=== PATIENT | female | born 1975 | race Hispanic/Latino ===

== ENCOUNTER 2016-07-25 19:22 | Emergency (ER) | payer OTHER ==
[2016-07-25 19:22] VITALS: BMI 26.6
[2016-07-25 19:43] VITALS: BP 135/72; PULSE 72; RESP 16; TEMP 98.3; O2SAT 98
--- NOTE | 2016-07-25 20:29 | ED PDOC ---
HPI: Back Time Seen by Provider: 07/25/16 19:48 Chief Complaint (Nursing): Back Pain Chief Complaint (Provider): Back Pain History Per: Patient History/Exam Limitations: no limitations Onset/Duration Of Symptoms: Days (x2 weeks) Current Symptoms Are (Timing): Still Present Additional Complaint(s): 41 year old female presents to the emergency department with a complaint of back pain x 2 weeks. Patient states that pain radiates from right side of low back down right leg. She has taken OTC tylenol and applied tiger balm without relief of symptoms. No recent fall or trauma, no associated dysuria or incontinence. Patient rates current pain as 7 out of 10. Patient states that she has had intermittent back pain and sciatica symptoms since receiving an epidural during 5 years ago. PMD: Dr Juvencio Miller MD Past Medical History Reviewed: Historical Data, Nursing Documentation, Vital Signs Vital Signs: Last Vital Signs Temp 98.3 F 07/25/16 19:41 Pulse 72 07/25/16 19:41 Resp 16 07/25/16 19:41 BP 135/72 07/25/16 19:41 Pulse Ox 98 07/25/16 19:41 - Medical History PMH: Anemia, Asthma, Migraine - Surgical History Surgical History: Cholecystectomy, Tonsillectomy (And adenoidectomy), (x2) Other surgeries: right knee surgery, sinus surgery - Family History Family History: States: No Known Family Hx - Living Arrangements Living Arrangements: With Family - Social History Current smoker - smoking cessation education provided: No Alcohol: None Drugs: Denies - Home Medications Home Medications: Ambulatory Orders Medication Instructions Recorded Acetaminophen/Butalbital/Caf 1 - 2 tab PO Q6 PRN #16 tab 05/06/15 [Fioricet] Cetirizine HCl [Zyrtec Allergy] mg PO DAILY 06/02/15 Naproxen 375 mg PO Q8 PRN #21 tab 06/02/15 diaZEpam [Valium] 5 mg PO Q6 PRN #10 tab 06/02/15 Amoxicillin 500 mg PO BID #14 cap 09/10/15 Acetaminophen/Butalbital/Caf 1 - 2 tab PO Q6 PRN #20 tab 10/05/15 [Fioricet] Amoxicillin 500 mg PO BID #14 tab 11/15/15 Acetaminophen/Butalbital/Caf 1 - 2 tab PO Q6 PRN #20 tab 03/06/16 [Fioricet] Ondansetron ODT [Zofran ODT] 4 mg PO Q6 PRN #16 odt 03/06/16 Cyclobenzaprine [Cyclobenzaprine 10 mg PO TID PRN #20 tab 07/25/16 HCl] Lidocaine 5% [Lidoderm] 1 ea TD DAILY PRN #30 patch 07/25/16 predniSONE [Prednisone] 20 mg PO BID #10 tab 07/25/16 - Allergies Allergies/Adverse Reactions: Allergies Allergy/AdvReac Type Severity Reaction Status Date / Time morphine Allergy VOMITING Verified 03/06/16 19:02 aspirin AdvReac Mild stomach Verified 07/25/16 19:46 issues ibuprofen [From Motrin] AdvReac Mild stomach Verified 07/25/16 19:40 issues Review of Systems ROS Statement: Except As Marked, All Systems Reviewed And Found Negative Gastrointestinal: Negative for: Other (changes in bowel movements) Genitourinary Female: Negative for: Dysuria, Frequency Musculoskeletal: Positive for: Back Pain, Leg Pain (Right) Neurological: Negative for: Weakness, Numbness, Incoordination, Change in Speech , Confusion, Seizures, Altered Mental Status, Headache, Dizziness Physical Exam - Reviewed Nursing Documentation Reviewed: Yes Vital Signs Reviewed: Yes - Physical Exam Appears: Positive for: Well, Non-toxic, No Acute Distress, Uncomfortable Head Exam: Positive for: ATRAUMATIC, NORMAL INSPECTION, NORMOCEPHALIC Skin: Positive for: Normal Color. Negative for: Rash Eye Exam: Positive for: Normal appearance Neck: Positive for: Painless ROM. Negative for: Pain On Movement Of Neck Back: Positive for: Other (Diffuse tenderness of the lower lumbar region. Pain elicited to the heel of the right leg with walking.). Negative for: L CVA Tenderness, R CVA Tenderness Extremity: Negative for: Pedal Edema, Calf Tenderness Neurologic/Psych: Positive for: Alert, Oriented - Laboratory Results Urine POC: Negative Urine dip results: Positive for: Blood (Urine dip positive for moderate blood. ( Patient is currently menstruating)) - ECG O2 Sat by Pulse Oximetry: 98 (RA) Pulse Ox Interpretation: Normal - Other Rad L/S Spine x-ray X-Ray: Interpreted by Me, Viewed By Me X-Ray Interpretation: no fx, no dis Medical Decision Making Medical Decision Making: Time: 19:41 Initial Impression: Back pain Initial Plan: --Urine Dip --Flexeril 10 mg PO --Toradol 30 mg IM --LS Spine AP/Lat (RAD) --Reevaluation Patient feels better after medications are administered. She is aware of x-ray results. Patient given prescriptions for Lidoderm patch, prednisone and Flexeril. She was advised to follow up with primary doctor or orthopedist in 2- 3 days for further evaluation. Scribe Attestation: Documented by Keli Matthew, acting as a scribe for Sol Blanco PA-C. Provider Scribe Attestation: All medical record entries made by the Scribe were at my direction and personally dictated by me. I have reviewed the chart and agree that the record accurately reflects my personal performance of the history, physical exam, medical decision making, and the department course for this patient. I have also personally directed, reviewed, and agree with the discharge instructions and disposition. Disposition - Clinical Impression Clinical Impression: Back pain, Sciatica - Patient ED Disposition Is Patient to be Admitted: No Counseled Patient/Family Regarding: Studies Performed, Diagnosis, Need For Followup, Rx Given - Disposition Referrals: Juvencio Miller MD [Family Provider] - Davida Granger MD [Staff Provider] - Disposition: Routine/Home Disposition Time: 21:57 Condition: IMPROVED Additional Instructions: Take prescription meds as directed. Follow up with primary doctor or orthopedist in 2-3 days. Prescriptions: Cyclobenzaprine [Cyclobenzaprine HCl] 10 mg PO TID PRN #20 tab PRN Reason: Muscle Spasm Lidocaine 5% [Lidoderm] 1 ea TD DAILY PRN #30 patch PRN Reason: Pain, Moderate (4-7) predniSONE [Prednisone] 20 mg PO BID #10 tab Instructions: Sciatica (ED), Back Pain (ED)
--- NOTE | 2016-07-26 17:34 | RAD ---
PROCEDURE: Radiographs of the Lumbar Spine. HISTORY: Pain. No history of recent/ related trauma provided COMPARISON: No prior. FINDINGS: BONES: Normal alignment. No listhesis. No fracture. DISC SPACES: Unremarkable. OTHER FINDINGS: None. IMPRESSION: No acute findings related to/accounting for the clinical presentation.
== END 2016-07-25 22:45 | disposition home or self-care (01) ==
LOC: H.ER 19:22
DX: M54.30 Sciatica, unspecified side (principal)

== ENCOUNTER 2016-09-03 18:58 | Observation (INO) | payer OTHER ==
[2016-09-03 18:59] VITALS: BMI 26.6
--- NOTE | 2016-09-03 19:30 | ED PDOC ---
HPI: General Adult Time Seen by Provider: 09/03/16 19:15 Chief Complaint (Nursing): Eye Problem Chief Complaint (Provider): Right arm nunmbness, blurry vision History Per: Patient History/Exam Limitations: no limitations Onset/Duration Of Symptoms: Days, Intermittent Episodes, Persistent Additional History Per: Patient Additional Complaint(s): The patient is a 41yo female, past medical history of anemia, presents to the ED for evaluation of right arm numbness and blurry vision for the past week with intermittent episodes. Patient reports an episode of right lower extremity numbness which occurred once last week. Patient reports she presented today because today at work, she had an episode of right arm numbness and blurry vision at the same time, causing her concern. Patient states she is unsure if she feels any weakness; also reports a slight headache (1/10) at present. Patient offers no additional medical complaints. NIHSS Stroke Scale - Date/Time Evaluation Performed Date Performed: 09/03/16 Time Performed: 19:15 When Was NIHSS Performed: Baseline - How Severe is the Stroke Level of Consciousness: 0=Alert LOC to Questions: 0=Both comments correct LOC to commands: 0=Obeys both correctly Best Gaze: 0=Normal Visual: 0=No visual loss Facial: 0=Normal Motor Arm - Left: 0=No drift Motor Arm - Right: 0=No drift Motor Leg - Left: 0=No drift Motor Leg - Right: 0=No drift Limb Ataxia: 0=Absent Sensory: 0=Normal Best Language: 0=No aphasia Dysarthia: 0=Normal articulation Extinction & Inattention (Neglect): 0=Normal, no object Score: 0 Past Medical History Reviewed: Historical Data, Nursing Documentation, Vital Signs Vital Signs: Last Vital Signs Temp 98.9 F 09/03/16 19:03 Pulse 80 09/03/16 19:03 Resp 18 09/03/16 19:03 BP 137/86 09/03/16 19:03 Pulse Ox 100 09/03/16 21:38 - Medical History PMH: Anemia, Asthma, Migraine Denies: Diabetes, Chronic Kidney Disease - Surgical History Surgical History: Cholecystectomy, Tonsillectomy (And adenoidectomy), (x2) - Family History Family History: States: Unknown Family Hx - Immunization History Hx Tetanus Toxoid Vaccination: No Hx Influenza Vaccination: Yes Hx Pneumococcal Vaccination: No - Home Medications Home Medications: Ambulatory Orders Medication Instructions Recorded Acetaminophen [Tylenol 325mg tab] PRN 09/03/16 - Allergies Allergies/Adverse Reactions: Allergies Allergy/AdvReac Type Severity Reaction Status Date / Time morphine Allergy VOMITING Verified 03/06/16 19:02 aspirin AdvReac Mild stomach Verified 07/25/16 19:46 issues ibuprofen [From Motrin] AdvReac Mild stomach Verified 07/25/16 19:40 issues Review of Systems ROS Statement: Except As Marked, All Systems Reviewed And Found Negative Constitutional: Negative for: Weakness Eyes: Positive for: Vision Change (blurry vision) Musculoskeletal: Positive for: Other (right upper extremity numbness) Neurological: Positive for: Headache (mild) Physical Exam - Reviewed Nursing Documentation Reviewed: Yes Vital Signs Reviewed: Yes - Physical Exam Appears: Positive for: Non-toxic, Uncomfortable (anxious appearing, tearful) Head Exam: Positive for: ATRAUMATIC, NORMAL INSPECTION, NORMOCEPHALIC Skin: Positive for: Normal Color, Warm, DRY Eye Exam: Positive for: Normal appearance, EOMI, PERRL Neck: Positive for: Normal, Supple Cardiovascular/Chest: Positive for: Regular Rate, Rhythm Respiratory: Positive for: Normal Breath Sounds. Negative for: Respiratory Distress Extremity: Positive for: Normal ROM. 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 Negative for : Motor/Sensory Deficits, Aphasia, Facial Droop - Laboratory Results Result Diagrams: 09/03/16 19:45 09/03/16 19:45 - ECG O2 Sat by Pulse Oximetry: 100 (RA) Pulse Ox Interpretation: Normal Medical Decision Making Medical Decision Making: Time: 1929 Impression: Paresthesia vs. TIA vs. electrolyte abnormalities Plan: -- Labs -- CT Head -- Chest x-ray Reassess Time: 2128 CT Head IMPRESSION: No acute intracranial abnormality Time: [address] Miller who agrees with admission for TIA workup. Patient not given aspirin due to known allergy. Scribe Attestation: Documented by Liz Lock acting as a scribe for Panda Seo MD. Provider Attestation: All medical record entries made by the Scribe were at my direction and personally dictated by me. I have reviewed the chart and agree that the record accurately reflects my personal performance of the history, physical exam, medical decision making, and the department course for this patient. I have also personally directed, reviewed, and agree with the discharge instructions and disposition. Disposition - Clinical Impression Clinical Impression: TIA (transient ischemic attack) - Disposition Disposition Time: 21:30 Condition: STABLE
[2016-09-03 19:55] LABS: BASO % 0.3 % (0.0-2.0); EOS # 0.3 K/uL (0.0-0.7); EOS % 2.7 % (0.0-4.0); HEMOGLOBIN 9.4 g/dL (12.0-16.0); LYMPH # 3.4 K/uL (1.0-4.3); LYMPH % 33.3 % (20.0-40.0); MEAN CELL VOLUME 77.7 fl (81.0-99.0); MEAN CORPUSCULAR HEMOGLOBIN 24.3 pg (27.0-31.0); MEAN CORPUSCULAR HGB CONC 31.3 g/dL (33.0-37.0); MEAN PLATELET VOLUME 8.2 fl (7.2-11.7); MONO # 0.8 K/uL (0.0-0.8); MONO % 7.6 % (0.0-10.0); NEUT # 5.6 K/uL (1.8-7.0); NEUT % 56.1 % (50.0-75.0); RBC 3.86 Mil/uL (3.80-5.20); RED CELL DISTRIBUTION WIDTH 15.3 % (11.5-14.5); WHITE BLOOD COUNT 10.1 K/uL (4.8-10.8)
[2016-09-03 20:04] LABS: ALB/GLOB RATIO 1.2 (1.0-2.1); ALBUMIN 4.1 g/dL (3.5-5.0); ALT/SGPT 29 U/L (9-52); AST/SGOT 23 U/L (14-36); BLOOD UREA NITROGEN 8 mg/dl (7-17); GFR AFRICAN-AMERICAN > 60; GFR NON-AFRICAN AMERICAN > 60; HDL CHOLESTEROL 49 MG/DL (30-70)
[2016-09-03 20:13] LABS: PARTIAL THROMBOPLASTIN TIME 28.2 Seconds (25.6-37.1); PROTHROMBIN TIME 11.5 Seconds (9.8-13.1)
[2016-09-03 20:15] LABS: LDL CHOLESTEROL 87 mg/dL (0-129)
--- NOTE | 2016-09-03 21:28 | CT ---
EXAM: CT Head Without Intravenous Contrast CLINICAL HISTORY: 41 years old, female; Signs and symptoms; Dizziness and numbness / parasthesia; Right; Additional info: Blurry vision, r arm numbness TECHNIQUE: Axial computed tomography images of the head/brain without intravenous contrast. This CT exam was performed using one or more of the following dose reduction techniques: automated exposure control, adjustment of the mA and/or kV according to patient size, and/or use of iterative reconstruction technique. Coronal and sagittal reformatted images were created and reviewed. EXAM DATE/TIME: 09/03/2016 7:20 PM COMPARISON: There are no prior studies for comparison. FINDINGS: Brain: Ventricles are normal in size and configuration. There is no midline shift. There are no intra-axial or extra-axial mass lesions or areas of hemorrhage. There are no abnormal fluid collections. Ward-white differentiation is maintained. Ventricles: See above. Bones: Cranial vault is intact. Soft tissues: unremarkable Sinuses: There is no acute sinusitis. Ears and mastoids: Middle ears and mastoids are unremarkable Orbits: Orbital contents are unremarkable. IMPRESSION: No acute intracranial abnormality
[2016-09-04] MEDS ORDERED: Pneumococcal 23-Valent Vaccine IM ONE (06:00)
[2016-09-04] MEDS ORDERED: Enoxaparin 40 mg Syringe SC SCH (09:00)
--- NOTE | 2016-09-04 10:07 | CARD ---
APPROVED REPORT EKG Measurement Heart [id number] <Conclusion> Normal sinus rhythm Normal ECG
[2016-09-04] MEDS: Apap-Butalbital-Caffeine 325-50-40mg Tab PO PRN ×2 (10:20→20:17)
[2016-09-04 12:29] VITALS: RESP 20
[2016-09-04] MEDS ORDERED: Apap-Butalbital-Caffeine 325-50-40mg Tab PO STA (14:34)
--- NOTE | 2016-09-04 14:58 | RAD ---
HISTORY: R arm weakness, blurry visoin COMPARISON: 11/15/2015 FINDINGS: LUNGS: No active pulmonary disease. PLEURA: No significant pleural effusion identified, no pneumothorax apparent. CARDIOVASCULAR: Normal. OSSEOUS STRUCTURES: No significant abnormalities. VISUALIZED UPPER ABDOMEN: Normal. OTHER FINDINGS: None. IMPRESSION: No active disease.
--- NOTE | 2016-09-04 16:29 | CP.PCM.DIS ---
Provider - Provider Date of Admission: 09/03/16 21:35 Attending physician: Juvencio Miller MD Time Spent in preparation of Discharge (in minutes): 30 Diagnosis - Discharge Diagnosis (1) Anemia Status: Acute (2) Paresthesia Status: Acute (3) Migraine headache Status: Acute Hospital Course - Lab Results Lab Results: Most Recent Lab Values WBC 10.1 K/uL (4.8-10.8) 09/03/16 19:45 RBC 3.86 Mil/uL (3.80-5.20) 09/03/16 19:45 Hgb 9.4 g/dL (12.0-16.0) L 09/03/16 19:45 Hct 30.0 % (34.0-47.0) L 09/03/16 19:45 MCV 77.7 fl (81.0-99.0) L D 09/03/16 19:45 MCH 24.3 pg (27.0-31.0) L 09/03/16 19:45 MCHC 31.3 g/dL (33.0-37.0) L 09/03/16 19:45 RDW 15.3 % (11.5-14.5) H 09/03/16 19:45 Plt Count 309 K/uL (130-400) 09/03/16 19:45 MPV 8.2 fl (7.2-11.7) 09/03/16 19:45 Neut % (Auto) 56.1 % (50.0-75.0) 09/03/16 19:45 Lymph % (Auto) 33.3 % (20.0-40.0) 09/03/16 19:45 [place] % (Auto) 7.6 % (0.0-10.0) 09/03/16 19:45 Eos % (Auto) 2.7 % (0.0-4.0) 09/03/16 19:45 Baso % (Auto) 0.3 % (0.0-2.0) 09/03/16 19:45 Neut # 5.6 K/uL (1.8-7.0) 09/03/16 19:45 Lymph # 3.4 K/uL (1.0-4.3) 09/03/16 19:45 [place] # 0.8 K/uL (0.0-0.8) 09/03/16 19:45 Eos # 0.3 K/uL (0.0-0.7) 09/03/16 19:45 Baso # 0.0 K/uL (0.0-0.2) 09/03/16 19:45 ESR 37 mm/hr (0-20) H 09/04/16 08:26 PT 11.5 Seconds (9.8-13.1) 09/03/16 19:45 INR 1.0 (0.9-1.2) 09/03/16 19:45 APTT 28.2 Seconds (25.6-37.1) 09/03/16 19:45 Sodium 138 mmol/l (132-148) 09/03/16 19:45 Potassium 3.8 MMOL/L (3.6-5.0) 09/03/16 19:45 Chloride 105 mmol/L (98-107) 09/03/16 19:45 Carbon Dioxide 25 mmol/L (22-30) 09/03/16 19:45 Anion Gap 11 (10-20) 09/03/16 19:45 BUN 8 mg/dl (7-17) 09/03/16 19:45 Creatinine 0.7 mg/dL (0.7-1.2) 09/03/16 19:45 Est GFR ( Amer) > 60 09/03/16 19:45 Est GFR (Non-Af Amer) > 60 09/03/16 19:45 POC Glucose (mg/dL) 92 mg/dL (65-110) 09/03/16 20:14 Random Glucose 93 mg/dL (65-105) 09/03/16 19:45 Calcium 9.0 mg/dL (8.4-10.2) 09/03/16 19:45 Total Bilirubin 0.2 mg/dl (0.2-1.3) 09/03/16 19:45 AST 23 U/L (14-36) 09/03/16 19:45 ALT 29 U/L (9-52) 09/03/16 19:45 Alkaline Phosphatase 91 U/L (38-126) 09/03/16 19:45 Troponin I < 0.0120 ng/mL (0.00-0.120) 09/03/16 19:45 Total Protein 7.5 G/DL (6.3-8.2) 09/03/16 19:45 Albumin 4.1 g/dL (3.5-5.0) 09/03/16 19:45 Globulin 3.5 gm/dL (2.2-3.9) 09/03/16 19:45 Albumin/Globulin Ratio 1.2 (1.0-2.1) 09/03/16 19:45 Triglycerides 98 mg/DL (0-149) 09/03/16 19:45 Cholesterol 167 mg/dL (0-199) 09/03/16 19:45 LDL Cholesterol Direct 87 mg/dL (0-129) 09/03/16 19:45 HDL Cholesterol 49 MG/DL (30-70) 09/03/16 19:45 Vitamin B12 317 pg/mL (239-931) 09/04/16 08:26 Blood Type O POSITIVE 09/03/16 19:45 Antibody Screen Negative 09/03/16 19:45 BBK History Checked Patient has bt 09/03/16 19:45 - Hospital Course Hospital Course: PARESTHESIAS RESOLVED Discharge Exam - Head Exam Head Exam: ATRAUMATIC, NORMAL INSPECTION, NORMOCEPHALIC - Eye Exam Eye Exam: EOMI, Normal appearance, PERRL Pupil Exam: NORMAL ACCOMODATION, PERRL - GI/Abdominal Exam GI & Abdominal Exam: Normal Bowel Sounds - Rectal Exam Rectal Exam: NORMAL INSPECTION - Neurological Exam Neurological exam: Alert, CN II-XII Intact, Normal Gait, Oriented x3, Reflexes Normal - Psychiatric Exam Psychiatric exam: Normal Affect, Normal Mood - Skin Skin Exam: Dry, Intact, Normal Color, Warm Discharge Plan - Follow Up Plan Condition: STABLE Disposition: HOME/ ROUTINE Patient education suggested?: Yes Additional Instructions: NEUROLOGY EVALUATION
--- NOTE | 2016-09-04 16:31 | MRI ---
PROCEDURE: MRI BRAIN WITHOUT CONTRAST HISTORY: stroke/ mass COMPARISON: Prior brain MRI dated 07/07/2008. TECHNIQUE: Multiplanar, multisequence MR images of the brain were obtained without intravenous contrast enhancement. FINDINGS: HEMORRHAGE: None DWI: No evidence of an acute or early subacute infarction. BRAIN PARENCHYMA: There 4-5 tiny subcortical long TR hyperintensities identified at the right frontal lobe with 2 seen at the left frontal lobe as well, best seen on the FLAIR acquisition which are likely not simply change greater prior distant brain MRI dated 07/07/2008. This is a nonspecific pattern with a broad differential diagnosis. Consider possible demyelination, vasculitis or Lyme disease as well as a number other possibilities including hypertrophy retention and migraine headaches. Consider follow-up MRI for further characterization if clinically warranted. The corpus callosum appears normal. VENTRICLES: Unremarkable. No hydrocephalus. CRANIUM: Unremarkable. ORBITS: Grossly unremarkable. PARANASAL SINUSES/MASTOIDS: Clear VASCULAR SYSTEM: Skull base flow voids intact. OTHER FINDINGS: None. IMPRESSION: Several tiny subcortical long TR hyper intense foci are seen at the bilateral frontal lobes once again which are of uncertain origin and significance. No additional white matter abnormalities are appreciate clearly corpus callosum. There is no evidence of an acute or subacute brain infarction or intracranial hemorrhage or mass-effect. Please see different diagnosis above. Consider follow-up brain MRI with contrast for additional characterization.
[2016-09-04 16:50] LABS: PROLACTIN 12.2 ng/mL (3.0-18.9)
--- NOTE | 2016-09-04 17:02 | HP ---
HISTORY OF PRESENT ILLNESS: The patient is a 41-year-old female who was admitted to emergency room because of numbness of right arm with blurry vision intermittently over past one week, worse on the day of admission. She also had headaches on and off. 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 She also has history of chronic sinus problems which she has had surgery for in the past and she also has chronic iron deficiency anemia. She has been poorly compliant to follow up with the neurologist and in the office. FAMILY HISTORY: Non-relevant. SOCIAL HISTORY: She does not smoke or drink and lives at home with and children. REVIEW OF SYSTEMS: Essentially unremarkable for recurrent headaches. PHYSICAL EXAMINATION GENERAL: The patient is alert, oriented, appears to be *------* mild distress from headaches, but numbness of the arm has resolved. VITAL SIGNS: Blood pressure 137/86, pulse of 80, respirations 18. She is afebrile. O2 saturation 100% on room air. SKIN: Fair turgor. HEENT: Pupils equal, reactive to light and accommodation. JVP is flat. Mouth shows fair hygiene. LUNGS: Clear. HEART: Regular. No murmurs or gallops. Chest wall no tenderness. Breaths normal. ABDOMEN: Soft, nontender. No organomegaly. EXTREMITIES: No edema or cyanosis. CENTRAL NERVOUS SYSTEM: Grossly intact. LABORATORY DATA: WBC 10.1, hemoglobin 9.4, platelet count of *------*. Sodium 138, potassium 3.8, BUN 8, creatinine 0.7, serum glucose 93. CAT scan of the head: No acute pathology noted. Chest x-ray done, official report pending. Electrocardiogram: Regular sinus rhythm. IMPRESSION: Possible transient ischemic attack symptoms, however, could be due to migraine headaches, chronic anemia. PLAN: Neurology evaluation. We will obtain MRI of the brain and carotid ultrasound, place the patient on Lovenox. THE PATIENT IS ALLERGIC TO ASPIRIN, so aspirin cannot be given. We will obtain neurology evaluation. If the patient is cleared, we will probably discharge and follow up as an outpatient later. Juvencio Miller MD
[2016-09-04 17:37] LABS: FOLATE 7.5 ng/mL
[2016-09-04 21:08] VITALS: BP 117/77; PULSE 70; TEMP 98.7; O2SAT 99
--- NOTE | 2016-09-05 06:19 | CON ---
DATE: 09/03/2016 REASON FOR CONSULTATION: Transient ischemic attack. CHIEF COMPLAINT: The patient was brought in to [facility] with a history of recurrent episodes of right arm numbness and blurred vision. From a neurological point of view, I was called in to evaluate her for further management. HISTORY OF PRESENT ILLNESS: Ms. Mamta Brown is a 41-year-old right-handed , [place]-speaking female, in her usual state of health. For the last 10 days, she has been experiencing right arm numbness and leg numbness. This comes and goes. When this appears, it at least stays for a few minutes. She also has some right eye blurriness independently; however, while she was at work, these happened together. Usually, a headache is associated with these symptoms; at this time, a different type of headache, not associated with nausea or vomiting. No witnessed tonic-clonic activities. Subjectively, she did not have involuntary movements. No history of recent travel. No history of recent vaccination or medications given to her. PAST MEDICAL HISTORY: Migraine headache. ALLERGIES: MORPHINE. PAST SURGICAL HISTORY: She had gastric bypass surgery more than 7 years ago. REVIEW OF SYSTEMS: As per H and P. PHYSICAL EXAMINATION: VITAL SIGNS: Blood pressure 130/81, mean arterial pressure of 97, respiratory rate is 16, and temperature is afebrile. NECK: Supple. No carotid bruit. CARDIOPULMONARY: Heart sounds are regular. CHEST: Fair air entry. Lungs are clear. EXTREMITIES: No edema. NEUROLOGIC: Mental status examination: She is awake, alert, and oriented to person, place, and time. Speech is clear. Naming, repetition, fluency, and comprehension are all within normal. Cranial nerves: Visual quesada are intact. Pupils reactive to light. Extraocular movement normal. No facial sensory deficits. No facial asymmetry. Hearing is normal. Tongue is midline. Good gag. Motor exam: Able to stand with eyes closed. No drift is noted. Power is symmetric on either side. Deep tendon reflexes are symmetric on either side. Plantar response is downgoing. Sensory examination: Subjectively, numbness over the right side in the leg, does not follow any dermatome. Coordination: [id number] test is intact. Gait is normal. CONCLUSION: Upon review of her history and neurological examination, the patient has episode of right hemisensory deficit associated with blurriness followed by headache. This is probably all related to brain stem migraine versus hemiplegic migraine. However, the current examination does not show any ischemic process. The current examination does not show any long tract signs at present. WORKUP: CT of the head was reviewed by me, no acute pathology noted. MRI of the brain reviewed showed small T2 signal in the frontal region all consistent with possible migraine process. I doubt the patient has ischemic process at this time. Though she carries chronic migraine associated with some sensory deficit, the patient should be on antiplatelet to prevent future form of stroke. LABORATORY DATA: Blood workup: WBC 10.1, hemoglobin 9.4, hematocrit 30.0, and platelets 309. PT 11.5, INR 1.0, and PTT 28.2. Sodium 138, potassium 3.8, chloride 105, bicarbonate 25, BUN 8, creatinine 0.7, GFR is more than 60. Cholesterol 167, LDL 87, HDL 49. B12 is 317. RPR nonreactive. RECOMMENDATIONS: The patient should be on antiplatelet. The patient may benefit from migraine prophylactic medication. This can be given when she can be seen as outpatient. The patient's condition meanwhile was discussed. The patient will be followed as an outpatient. Cristian Shaw MD
--- NOTE | 2016-09-05 11:10 | EEG ---
ELECTROENCEPHALOGRAPHIC REPORT This is a 16-channel electroencephalogram of awake and drowsy adult. During the study, photic stimulation was performed, hyperventilation was not performed. The resting electroencephalogram continues to have 20-30 microvolt, diffuse 5-7 hertz theta activities noted at parietal and occipital leads. Some movement artifact contaminated to the background rhythm. The photic stimulation did not develop any response noted . IMPRESSION: This is an abnormal electroencephalogram because of persistent slowing throughout the record suggestive of bilateral cerebral dysfunction, this is probably secondary to metabolic vascular degenerative process. However, clinically indicated, the patient should be benefited of doing extended hour amplitude electroencephalogram to further localizing abnormal electrophysiological activities. This can be done as an outpatient. Cristian Shaw MD
--- NOTE | 2016-09-05 12:06 | US ---
PROCEDURE: Duplex interrogation of the carotid and vertebral arteries. HISTORY: TIA COMPARISON: No prior TECHNIQUE: Grayscale and duplex Doppler evaluation of the cervical carotid and vertebral arteries were performed. The common carotid, carotid bifurcations and cervical ICA and proximal ECA were evaluated. The vertebral arteries were evaluated for gross patency and directives barton. FINDINGS: Findings: Current study reveals no evidence of significant atherosclerotic plaque changes within the right or left carotid arteries however both internal carotid arteries are somewhat tortuous in course. . Maximal right ICA velocity = 85.2 cm/S Maximal right CCA velocity = 97.5 cm/S ICA/CCA ratio = 1.1 Maximal left ICA velocity = 81.1 cm/S Maximal left CCA velocity = 67.6 cm/S ICA/CCA ratio = 1.3. Antegrade flow noted both vertebral arteries. . Impression: No evidence of a hemodynamically significant stenosis. Tortuous course of both internal carotid arteries.
== END 2016-09-04 21:40 | disposition home or self-care (01) ==
LOC: H.ER 18:58 → H.ERHOLD 21:35 → H.TEL 09-04 00:56
PROVIDERS: ADMIT Internal Medicine Pulmonary Disease; ATTEND Internal Medicine Pulmonary Disease
DX: G43.809 Other migraine, not intractable, without status migrainosus (principal); D50.9 Iron deficiency anemia, unspecified; J45.909 Unspecified asthma, uncomplicated; Z23 Encounter for immunization; Z91.19 Patient's noncompliance with other medical treatment and regimen; Z88.6 Allergy status to analgesic agent; Z98.84 Bariatric surgery status

== ENCOUNTER 2017-12-13 08:38 | Emergency (ER) | payer OTHER ==
[2017-12-13 08:51] VITALS: BMI 28.3
[2017-12-13 08:52] VITALS: TEMP 98.4
[2017-12-13] MEDS ORDERED: Albuterol-Ipratrop 3 mg / 0.5 (3 ml) UD INH STA ×3 (09:17→09:19)
--- NOTE | 2017-12-13 09:44 | ED PDOC ---
HPI: Influenza Time Seen by Provider: 12/13/17 08:58 Chief Complaint: Cough, Cold, Congestion Past Medical History Vital Signs: Last Vital Signs Temp 98.4 F 12/13/17 08:51 Pulse 71 12/13/17 08:51 Resp 20 12/13/17 08:51 BP 121/83 12/13/17 08:51 Pulse Ox 98 12/13/17 08:51 - Medical History PMH: Anemia (JUST FINISHED 10 WEEKS IRON INFUSION), Asthma, Migraine Denies: Diabetes, Chronic Kidney Disease - Surgical History Surgical History: Cholecystectomy, Endoscopy, Tonsillectomy (And adenoidectomy), (x2) - Family History Family History: States: Unknown Family Hx - Immunization History Hx Tetanus Toxoid Vaccination: No Hx Influenza Vaccination: No Hx Pneumococcal Vaccination: No - Home Medications Home Medications: Ambulatory Orders Medication Instructions Recorded Topiramate [Topiramate ER] 1 tab PO DAILY 12/18/16 - Allergies Allergies/Adverse Reactions: Allergies Allergy/AdvReac Type Severity Reaction Status Date / Time morphine Allergy VOMITING Verified 12/13/17 09:10 aspirin AdvReac Mild stomach Verified 12/13/17 09:10 issues ibuprofen [From Motrin] AdvReac Mild stomach Verified 12/13/17 09:10 issues acetaminophen [From Percocet] AdvReac Stomach Verified 12/13/17 09:10 Issues oxycodone [From Percocet] AdvReac Stomach Verified 12/13/17 09:10 Issues - ECG O2 Sat by Pulse Oximetry: 98 Disposition - Disposition
[2017-12-13 09:50] LABS: BASO % 0.3 % (0.0-2.0); EOS # 0.2 K/uL (0.0-0.7); EOS % 3.3 % (0.0-4.0); HEMOGLOBIN 10.9 g/dL (12.0-16.0); LYMPH # 2.4 K/uL (1.0-4.3); LYMPH % 40.2 % (20.0-40.0); MEAN CELL VOLUME 78.9 fl (81.0-99.0); MEAN CORPUSCULAR HEMOGLOBIN 25.6 pg (27.0-31.0); MEAN CORPUSCULAR HGB CONC 32.5 g/dL (33.0-37.0); MEAN PLATELET VOLUME 8.4 fl (7.2-11.7); MONO # 0.4 K/uL (0.0-0.8); MONO % 7.2 % (0.0-10.0); NRBC % 0.1 % (0.0-0.0); RBC 4.23 Mil/uL (3.80-5.20); RED CELL DISTRIBUTION WIDTH 15.2 % (11.5-14.5); WHITE BLOOD COUNT 6.1 K/uL (4.8-10.8)
--- NOTE | 2017-12-13 10:02 | ED PDOC ---
HPI: CCC, URI, Sore Throat Time Seen by Provider: 12/13/17 08:58 Chief Complaint (Nursing): Cough, Cold, Congestion Chief Complaint (Provider): Cough, Cold, Congestion History Per: Patient History/Exam Limitations: no limitations Have you had recent travel within the past 21 days to any of the following countries: [place], [place], [place] or [place]?: No Onset/Duration Of Symptoms: Days (3), Worse Since Current Symptoms Are (Timing): Still Present Associated Symptoms: Fever, Cough, Nasal Congestion Additional Complaint(s): 42 year old female with PMHx of asthma and chronic migraines presents to the ER for an evaluation of cough and congestion onset for 3 days. She reports of chest pain with cough, runny nose and fever. Patient and her kids are sick. Patient has been sick since Saturday and has been using her Albuterol machine. Her fever last night was 101F and she took Tylenol. She called her PMD on Saturday but he is out of town. Denies nausea, vomiting, diarrhea or abdominal pain. PMD: Juvencio Miller I Past Medical History Reviewed: Historical Data, Nursing Documentation, Vital Signs Vital Signs: Last Vital Signs Temp 98.4 F 12/13/17 08:51 Pulse 71 12/13/17 08:51 Resp 20 12/13/17 08:51 BP 121/83 12/13/17 08:51 Pulse Ox 98 12/13/17 08:51 - Medical History PMH: Anemia (JUST FINISHED 10 WEEKS IRON INFUSION), Asthma, Migraine Denies: Diabetes, Chronic Kidney Disease - Surgical History Surgical History: Cholecystectomy, Endoscopy, Tonsillectomy (And adenoidectomy), (x2) Other surgeries: knee surgery, tubal ligation, gastric bypass - Family History Family History: States: Unknown Family Hx - Social History Current smoker - smoking cessation education provided: No Alcohol: None Drugs: Denies - Immunization History Hx Tetanus Toxoid Vaccination: No Hx Influenza Vaccination: No Hx Pneumococcal Vaccination: No - Home Medications Home Medications: Ambulatory Orders Medication Instructions Recorded Topiramate [Topiramate ER] 1 tab PO DAILY 12/18/16 Acetaminophen/Butalbital/Caf 1 tab PO Q8 PRN #10 tab 12/13/17 [Fioricet] Albuterol/Ipratropium [Duoneb 3 3 ml IH QID #50 neb 12/13/17 MG/3 Ml-0.5 MG/3 Ml 3 Ml] predniSONE [predniSONE Tab] 40 mg PO DAILY #10 tab 12/13/17 - Allergies Allergies/Adverse Reactions: Allergies Allergy/AdvReac Type Severity Reaction Status Date / Time morphine Allergy VOMITING Verified 12/13/17 09:10 aspirin AdvReac Mild stomach Verified 12/13/17 09:10 issues ibuprofen [From Motrin] AdvReac Mild stomach Verified 12/13/17 09:10 issues acetaminophen [From Percocet] AdvReac Stomach Verified 12/13/17 09:10 Issues oxycodone [From Percocet] AdvReac Stomach Verified 12/13/17 09:10 Issues Review of Systems ROS Statement: Except As Marked, All Systems Reviewed And Found Negative Constitutional: Positive for: Fever ENT: Positive for: Nose Discharge, Nose Congestion Cardiovascular: Positive for: Chest Pain Respiratory: Positive for: Cough Gastrointestinal: Negative for: Nausea, Vomiting, Abdominal Pain, Diarrhea Physical Exam - Reviewed Nursing Documentation Reviewed: Yes Vital Signs Reviewed: Yes - Physical Exam Appears: Positive for: Non-toxic, No Acute Distress Head Exam: Positive for: ATRAUMATIC, NORMAL INSPECTION, NORMOCEPHALIC Skin: Positive for: Normal Color, Warm, Dry. Negative for: Rash Eye Exam: Positive for: EOMI, Normal appearance, PERRL ENT: Positive for: Normal ENT Inspection, TM Is/Are (normal) Neck: Positive for: Normal, Painless ROM, Supple. Negative for: Decreased ROM Cardiovascular/Chest: Positive for: Regular Rate, Rhythm. Negative for: Murmur Respiratory: Positive for: Wheezing (expiratory wheezing, more prominent on lower lobe). Negative for: Crackles, Rales Gastrointestinal/Abdominal: Positive for: Normal Exam, Soft. Negative for: Tenderness, Guarding, Rebound Back: Positive for: Normal Inspection Extremity: Positive for: Normal ROM. Negative for: Tenderness, Pedal Edema, Deformity Neurologic/Psych: Positive for: Alert, Oriented (x3), Other (speaking full sentences). Negative for: Motor/Sensory Deficits - Laboratory Results Result Diagrams: 12/13/17 09:40 12/13/17 09:40 - ECG O2 Sat by Pulse Oximetry: 98 (RA) Pulse Ox Interpretation: Normal - Radiology X-Ray: Read By Radiologist X-Ray Interpretation: No Acute Disease - Progress Re-evaluation Time: 11:30 Condition: Re-examined, Improving,but remains with symptoms Medical Decision Making Medical Decision Making: Time: 916 Initial Impression: exacerbation asthma Initial Plan: -- BMP --ED Urine --CBC w/ Differential --Chest Two Views --Duoneb 3mg/0.5mg (3ml) --SOLU-medrol 125mg --IV Insertion --Nebulizer Treatment RT --Peak Flow Pre/Post TX --Reevaluation Scribe Attestation: Documented by Monica Connolly, acting as a scribe for Yaz Tay MD Provider Scribe Attestation: All medical record entries made by the Scribe were at my direction and personally dictated by me. I have reviewed the chart and agree that the record accurately reflects my personal performance of the history, physical exam, medical decision making, and the department course for this patient. I have also personally directed, reviewed, and agree with the discharge instructions and disposition. Disposition - Clinical Impression Clinical Impression: Asthma exacerbation - Patient ED Disposition Is Patient to be Admitted: No Doctor Will See Patient In The: Office Counseled Patient/Family Regarding: Diagnosis, Need For Followup, Rx Given - Disposition Referrals: Juvencio Miller MD [Family Provider] - Disposition: Routine/Home Disposition Time: 11:30 Condition: IMPROVED Prescriptions: Acetaminophen/Butalbital/Caf [Fioricet] 1 tab PO Q8 PRN #10 tab PRN Reason: Headache Albuterol/Ipratropium [Duoneb 3 MG/3 Ml-0.5 MG/3 Ml 3 Ml] 3 ml IH QID #50 neb predniSONE [predniSONE Tab] 40 mg PO DAILY #10 tab Instructions: Asthma in Adults Forms: [employer] (Tajik), [facility] ED School/Work Excuse - POA Present On Arrival: None
[2017-12-13 10:09] LABS: BLOOD UREA NITROGEN 8 mg/dl (7-17); CALCIUM 8.9 mg/dL (8.4-10.2); GFR NON-AFRICAN AMERICAN > 60
--- NOTE | 2017-12-13 10:11 | RAD ---
Date of service: 12/13/2017 HISTORY: [id number], asthma, fever, COMPARISON: Portable chest 09/03/2016. TECHNIQUE: Chest PA and lateral FINDINGS: LUNGS: No active pulmonary disease. PLEURA: No significant pleural effusion identified. No pneumothorax apparent. CARDIOVASCULAR: No aortic atherosclerotic calcification present. Normal cardiac size. No pulmonary vascular congestion. OSSEOUS STRUCTURES: No significant abnormalities. VISUALIZED UPPER ABDOMEN: Surgical clips reiterated at the upper abdomen once again. OTHER FINDINGS: None. IMPRESSION: No interval acute cardiopulmonary disease appreciated.
[2017-12-13 12:32] VITALS: BP 107/73; PULSE 74; RESP 14; O2SAT 99
== END 2017-12-13 12:35 | disposition home or self-care (01) ==
LOC: H.ER 08:38
DX: J45.901 Unspecified asthma with (acute) exacerbation (principal); Z79.899 Other long term (current) drug therapy; Z88.5 Allergy status to narcotic agent; Z88.6 Allergy status to analgesic agent
CPT/HCPCS: 71046; 80048; 81025; 85025; 94150; 94640; 96374; 96375; 99284; J1885; J2930

== ENCOUNTER 2018-07-07 21:06 | Emergency (ER) | payer OTHER ==
[2018-07-07 21:06] VITALS: BMI 28.3
[2018-07-07 21:35] VITALS: RESP 16; O2SAT 100
--- NOTE | 2018-07-07 22:54 | ED PDOC ---
Lower Extremity Pain/Injury Time Seen by Provider: 07/07/18 21:51 Chief Complaint (Nursing): Lower Extremity Problem/Injury Chief Complaint (Provider): Left knee pain History Per: Patient History/Exam Limitations: no limitations Additional Complaint(s): 42 y/o F with hx of gastric bypass, anemia, migraines, and gastric ulcer who presents with left knee pain x 1 week. Pt states that she was doing laundry one week ago when a child pushed a laundry cart directly into both of her knees. Since that time, she has felt knee pain and instability of the left knee. She feels that her knee álvaro. Denies numbness or tingling. States that the knee feels that the same as her Right knee felt before she had meniscal surgery. She has been taking Tylenol for the pain, the last dose was this morning around 9am. Past Medical History Reviewed: Historical Data, Nursing Documentation, Vital Signs Vital Signs: Last Vital Signs Temp 98.5 F 07/07/18 21:34 Pulse 78 07/07/18 21:34 Resp 16 07/07/18 21:34 BP 143/82 07/07/18 21:34 Pulse Ox 100 07/07/18 21:34 Primary Care Provider: Juvencio Miller I - Medical History PMH: Anemia (JUST FINISHED 10 WEEKS IRON INFUSION), Asthma, Migraine Denies: Diabetes, Chronic Kidney Disease - Surgical History Surgical History: Cholecystectomy, Endoscopy, Tonsillectomy (And adenoidectomy), (x2) - Family History Family History: States: Unknown Family Hx - Immunization History Hx Tetanus Toxoid Vaccination: No Hx Influenza Vaccination: No Hx Pneumococcal Vaccination: No - Home Medications Home Medications: Ambulatory Orders Medication Instructions Recorded Topiramate [Topiramate ER] 1 tab PO DAILY 12/18/16 Acetaminophen/Butalbital/Caf 1 tab PO Q8 PRN #10 tab 12/13/17 [Fioricet] Albuterol/Ipratropium [Duoneb 3 3 ml IH QID #50 neb 12/13/17 MG/3 Ml-0.5 MG/3 Ml 3 Ml] predniSONE [predniSONE Tab] 40 mg PO DAILY #10 tab 12/13/17 - Allergies Allergies/Adverse Reactions: Allergies Allergy/AdvReac Type Severity Reaction Status Date / Time morphine Allergy VOMITING Verified 12/13/17 09:10 aspirin AdvReac Mild stomach Verified 12/13/17 09:10 issues ibuprofen [From Motrin] AdvReac Mild stomach Verified 12/13/17 09:10 issues oxycodone [From Percocet] AdvReac Stomach Verified 12/13/17 09:10 Issues Review of Systems Constitutional: Negative for: Fever, Chills Musculoskeletal: Positive for: Leg Pain (knee pain) Physical Exam - Reviewed Nursing Documentation Reviewed: Yes Vital Signs Reviewed: Yes - Physical Exam Appears: Positive for: Non-toxic Extremity: Positive for: Normal ROM (flexion and extension of left knee), Tenderness (mild tenderness on palpation of medial and lateral Left knee. No ecchymosis, erythema, swelling or deformity appreciated. ), Capillary Refill (< 2 sec on left). Negative for: Calf Tenderness (+ anterior drawer test), Deformity Neurological/Psych: Positive for: Awake, Alert, Oriented - ECG O2 Sat by Pulse Oximetry: 100 Medical Decision Making Medical Decision Making: Left knee x-ray Toradol 30mg IM x 1 Left knee x-ray read by me: no acute fracture or abnormality. Patient given knee brace and advised to follow up with orthopedist for likely MRI. Disposition - Clinical Impression Clinical Impression: Knee pain - Patient ED Disposition Is Patient to be Admitted: No - Disposition Referrals: Cisco Dickerson III, MD [Staff Provider] - Disposition: Routine/Home Disposition Time: 23:00 Condition: STABLE Additional Instructions: Follow up with orthopedist within the next week. Take Tylenol for pain. Use knee brace for stability. Return to ER if your symptoms worsen. Instructions: Knee Pain (DC) Forms: [employer] (Bengali) Print Language: [place]AST [place]
[2018-07-07 23:58] VITALS: BP 126/84; PULSE 72; TEMP 98.7
--- NOTE | 2018-07-08 08:21 | RAD ---
Date of service: 07/07/2018 PROCEDURE: Left Knee Radiographs. HISTORY: Pain. COMPARISON: None. TECHNIQUE: 2 views obtained. FINDINGS: BONES: Normal. No fracture. JOINTS: Normal. No osteoarthritis. JOINT EFFUSION: None. OTHER FINDINGS: None. IMPRESSION: Normal radiographs of the left knee.
== END 2018-07-07 23:56 | disposition home or self-care (01) ==
LOC: H.ER 21:06
DX: M25.562 Pain in left knee (principal); Z88.5 Allergy status to narcotic agent
CPT/HCPCS: 29530; 73562; 96372; 99283; J1885